=== PATIENT | male | born 1970 | race Caucasian/White ===

== ENCOUNTER 2022-04-15 13:00 | Inpatient (IN) | payer SELFPAY ==
[2022-04-15 13:02] VITALS: BP 167/109; PULSE 99; RESP 16; TEMP 36.7; O2SAT 98
--- NOTE | 2022-04-15 13:19 | W.ED.GENADLT ---
HPI - General Adult General: Chief complaint: Psychiatric Symptoms Stated complaint: MHE Time Seen by Provider: 04/15/22 13:03 History of Present Illness: HPI: [51]yo patient w/ hx of depression presenting for worsening depression, PTSD, and anxiety. On arrival, the patient is AAOx3 and cooperative with my evaluation. No focal complaints of chest pain, shortness of breath, palpitations, N/V, focal GI/ complaints. Currently denies SI/HI. No complaints of hallucinations. Onset: acute on chronic Duration: ongoing Location: home Severity: severe Associated symptoms: Deny chest pain, dyspnea, nausea, rash, palpitations or vomiting Review of Systems Const: Denies: fever(s) or chills Eyes: Denies: change in vision ENMT: Denies: mouth pain Card: Denies: chest pain or palpitations Resp: Denies: dyspnea or non-productive cough GI: Denies: abdominal pain, nausea, vomiting or diarrhea : Denies: dysuria Musc: Denies: extremity pain Skin/Breast: Denies: rash or new lesions Neuro: Denies: weakness in extremities Psych: Reports: anxiety, depression and panic attacks [place]/Lymph: Denies: easy bruising PFSH ED PFSH: Medical History Anxiety Depression PTSD (post-traumatic stress disorder) Social History Smoking and tobacco status: never smoked Alcohol intake: current Alcohol intake frequency: few times a week Substance/Drug Use: never Physical Exam Const: COMMON NORMALS: alert HENMT: COMMON NORMALS: atraumatic HEAD & SCALP: atraumatic MOUTH: moist mucous membranes not abnormal Eye: COMMON NORMALS: EOMs intact bilaterally and conjunctivae normal CONJUNCTIVA: Yes conjunctivae normal Neck/C-Spine: COMMON NORMALS: full ROM and supple Resp: COMMON NORMALS: normal respiratory effort and clear to auscultation bilaterally AUSCULTATION: clear to auscultation bilaterally Cardio: COMMON NORMALS: regular rate RATE: regular rate GI: COMMON NORMALS: Soft to palpation and non-tender PALPATION: Yes Soft to palpation Extremity: COMMON NORMALS: full ROM Neuro: SENSORIUM/ORIENTATION: Yes alert MOTOR EXAM: No Abnormal motor strength present and Other motor observations present (no focal motor deficits) Psych: COMMON NORMALS: speech normal SPEECH: Yes normal speech MOOD & AFFECT: Yes depressed mood Course Vital Signs: Vital signs: Vital Signs Temperature 98.1 F 04/15/22 13:02 Pulse Rate 99 04/15/22 13:02 Respiratory Rate 16 04/15/22 13:02 Blood Pressure 167/109 04/15/22 13:02 Pulse Oximetry 98 04/15/22 13:02 MDM - General Adult Medical Decision Making [51]yo patient w/ hx of depression, ADHD, anxiety presenting for PTSD/anxiety and worsening depression. HDS, exam within normal limit Thoughts are linear and organized, and the patient has no AH/VH, or HI. Clinically the patient displays no overt toxidrome; they are well appearing, with low suspicion for toxic ingestion given history and exam. Symptoms unlikely 2/2 anemia, hypothyroidism, infection, or ICH. Workup: CBC, CMP, Lipase, salicylate/tylenol, UDS Lab findings: wnl [14:40pm] On reassessment, labs and workup wnl. Patient is hemodynamically stable with no acute medical complaints. Case discussed with psychiatric provider Dr. Romero at [facility] psych inpatient with recommendation for admission Disposition: Psych Discharge Plan Discharge Condition: Stable Prescriptions: No Action diazepam [Valium] 10 mg tablet 10 mg PO .at HS PRN (Reason: anxiety) Qty: 30 5RF Referrals: Vinicio Zepeda DO [Primary Care Provider] - Coding Level of Care Code ED Retail Maintenance Technician for Chg Fwd Exam Comprehensive
[2022-04-15 14:03] LABS: Basophils # 0.1 10^3/uL (0.0-0.1); Basophils % 0.6 %; Eosinophils # 0.1 10^3/uL (0.0-0.8); Eosinophils % 0.8 %; Hemoglobin 17.5 g/dL (11.7-16.6); Lymphocytes # 1.7 10^3/uL (0.8-4.8); Lymphocytes % 16.4 %; Mean Corpuscular HGB Conc 36.5 g/dL (30.0-36.0); Mean Corpuscular Hemoglobin 31.5 pg (28.0-34.0); Mean Corpuscular Volume 86.5 fl (80-94); Mean Platelet Volume 11.3 fL (7.4-10.4); Monocytes # 0.9 10^3/uL (0.2-0.9); Neutrophils # 7.39 10^3/uL (1.8-7.7); Nucleated Red Blood Cells % 0 %; Platelet Count 261 10^3/cmm (130-400); Red Blood Count 5.55 10^6/uL (4.1-5.3); Red Cell Distribution Width 13.3 % (12.1-15.1); White Blood Count 10.1 10^3/uL (4.0-10.0)
[2022-04-15] MEDS: LORazepam 1 mg Tablet PO (14:11)
[2022-04-15 14:23] VITALS: BP 168/99; PULSE 18; RESP 18; TEMP 36.9; O2SAT 96
[2022-04-15 14:26] LABS: Alanine Aminotransferase 40 U/L (0-41); Albumin Level 4.6 g/dL (3.5-5.2); Alkaline Phosphatase 93 IU/L (40-130); Anion Gap 14.8 (5-19); Aspartate Amino Transferase 22 U/L (0-40); Blood Urea Nitrogen 19 mg/dL (6-20); Calcium 9.1 mg/dL (8.5-10.5); Carbon Dioxide 25 mmol/L (22-29); Chloride 101 mmol/L (98-107); Globulin 2.6 g/dL (1.3-4.6); Glomerular Filtration Rate 79.4 mL/min (90-130); Glucose 123 mg/dL (65-115); Lipase 18 U/L (13-60); Osmolality Calculated 288 mOsm/kg (285-295); Potassium 3.8 mmol/L (3.5-5.1); Sodium 137 mmol/L (136-145); Total Bilirubin 0.8 mg/dL (0.15-1.2); Total Protein 7.2 g/dL (6.6-8.7)
[2022-04-15 14:27] LABS: Acetaminophen < 5.0 ug/mL (10-30); Salicylate < 0.3 mg/dL (3-10)
[2022-04-15 14:38] VITALS: BP 144/98; PULSE 128; RESP 18; TEMP 36.6; O2SAT 98
[2022-04-15 15:04] LABS: Amphetamines Screen Urine Negative (Negative); Barbiturates Screen Urine Negative (Negative); Benzodiazepines Screen Urine Positive (Negative); Cocaine Screen Urine Negative (Negative); Opiate Screen Urine Negative (Negative); PCP Screen Urine Negative (Negative); THC Screen Urine Negative (Negative)
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
[2022-04-15] MEDS: trazodone 50 mg Tablet PO (20:15)
[2022-04-15] MEDS: hyDROXYzine 25 mg Capsule 50 MG PO (20:15)
[2022-04-15 20:29] VITALS: BP 151/89; PULSE 92; RESP 16; TEMP 36.8; O2SAT 97
[2022-04-16 06:00] VITALS: BP 114/77; PULSE 78; RESP 18; TEMP 36.5; O2SAT 98
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
[2022-04-16 14:00] VITALS: BP 143/91; PULSE 99; RESP 16; TEMP 36.8; O2SAT 97
[2022-04-16] MEDS: buPROPion SR (12 HR) 150 mg Tablet PO (17:11)
[2022-04-16] MEDS: acetaminophen 325 mg Tablet 650 MG PO (17:56)
[2022-04-16] MEDS: propranolol 20 mg Tablet PO (20:03)
[2022-04-16] MEDS: hyDROXYzine 25 mg Capsule 50 MG PO (20:03)
[2022-04-16] MEDS: trazodone 50 mg Tablet PO (20:03)
[2022-04-16 21:13] VITALS: BP 147/95; PULSE 106; RESP 18; TEMP 36.8; O2SAT 97
[2022-04-17 06:00] VITALS: BP 121/76; PULSE 72; RESP 19; TEMP 36.6; O2SAT 95
[2022-04-17] MEDS: acetaminophen 325 mg Tablet 650 MG PO (08:00)
[2022-04-17] MEDS: buPROPion XL (24 HR) 150 mg Tablet PO (08:00)
[2022-04-17] MEDS: propranolol 20 mg Tablet PO ×2 (08:00→14:30)
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
[2022-04-17 13:30] VITALS: BP 121/76; PULSE 72; RESP 19; TEMP 36.6; O2SAT 95
== END 2022-04-17 15:51 | disposition home or self-care (01) | DRG 881 ==
LOC: ER 13:49 → NP 14:01
PROVIDERS: Admitting Provider Psychiatry & Neurology Psychiatry; Emergency Provider Emergency Medicine; PCP Family Medicine; Visit Provider Psychiatry & Neurology Psychiatry
DX: F32.A Depression, unspecified (principal); F43.10 Post-traumatic stress disorder, unspecified; F41.9 Anxiety disorder, unspecified; F90.9 Attention-deficit hyperactivity disorder, unspecified type; Z81.8 Family history of other mental and behavioral disorders; G47.00 Insomnia, unspecified; F40.10 Social phobia, unspecified
CPT/HCPCS: 80053; 80306; 80307; 83690; 85025; 97150; 97165; 99285